=== PATIENT | female | born 1965 | race Caucasian/White ===

== ENCOUNTER 2020-12-17 07:59 | Emergency (ER) | payer BC ==
[~2020-12-17] VITALS: Ht 129.5 cm; Wt 59.0 kg
--- NOTE | 2020-12-17 07:59 | NUR ---
PT BIB SELF C/O BACK AND NECK PAIN FOR 1 WEEK, DENIES INJURY/TRAUMA. PT IS AAOX4, NOT IN RESPIRATORY DISTRESS, V/S STABLE, KEPT RESTED AND COMFORTABLE. WILL CONTINUE TO MONITOR.
--- NOTE | 2020-12-17 08:40 | NUR ---
AT BEDSIDE FOR EVAL.
--- NOTE | 2020-12-17 08:51 | NUR ---
ER PHLEB AT BEDSIDE FOR BLOOD DRAW.
[2020-12-17] MEDS ORDERED: KETOROLAC TROMETHAMINE 15 MG/ML VIAL ONE (08:52)
[2020-12-17] MEDS ORDERED: CYCLOBENZAPRINE 10 MG TABLET ONE (08:52)
[2020-12-17] MEDS ORDERED: KETOROLAC TROMETHAMINE INJ 60 MG/2 ML VIAL IM ONE (09:00)
[2020-12-17] MEDS ORDERED: CYCLOBENZAPRINE 10 MG TABLET PO ONE (09:00)
--- NOTE | 2020-12-17 09:01 | NUR ---
PT WHEELED TO CT SCAN VIA [employer].
[2020-12-17 09:07] LABS: BASOPHILS # (AUTO) 0.1 /CMM (0.0-0.2); EOSINOPHILS % (AUTO) 1.9 % (0.0-6.0); HEMATOCRIT 35 % (33-45); HEMOGLOBIN 11.6 g/dL (11.5-14.8); LYMPHOCYTES # (AUTO) 1.5 /CMM (0.8-4.8); LYMPHOCYTES % (AUTO) 26.3 % (20.0-44.0); MEAN CORPUSCULAR HGB CONC 34 g/dl (31.0-36.0); MEAN CORPUSCULAR VOLUME 89 fL (82-100); MONOCYTES # (AUTO) 0.2 /CMM (0.1-1.30); MONOCYTES % (AUTO) 3.7 % (2.0-12.0); NEUTROPHILS # (AUTO) 3.9 /CMM (1.8-8.9); NEUTROPHILS % (AUTO) 67.1 % (43.0-81.0); PLATELET COUNT (AUTO) 313 /CMM (150-450); WHITE BLOOD COUNT (AUTO) 5.8 K/uL (4.3-11.0)
[2020-12-17 09:12] LABS: CALCIUM, SERUM 10.3 mg/dL (8.5-10.1); CREATININE 0.5 mg/dL (0.6-1.3); POTASSIUM 3.9 mmol/L (3.5-5.1)
[2020-12-17 09:26] LABS: THYROID STIMULATING HORMONE 0.639 uIU/mL (0.358-3.74)
[2020-12-17] MEDS ORDERED: CYCL5TAB PO (10:11)
[2020-12-17 10:22] VITALS: BP 120/66
--- NOTE | 2020-12-17 10:22 | NUR ---
Patient discharged to home in stable condition. Written and verbal after care instructions given. Patient verbalizes understanding of instruction.
== END 2020-12-17 10:23 | disposition home or self-care (01) ==
LOC: ER 08:08
DX: M62.830 Muscle spasm of back (principal); M48.02 Spinal stenosis, cervical region; F41.9 Anxiety disorder, unspecified; Z88.0 Allergy status to penicillin
CPT/HCPCS: 36415; 70450; 72125; 80048; 83735; 84439; 84443; 85025; 96372; 99285; J1885

== ENCOUNTER 2021-02-28 07:13 | Emergency (ER) | payer BC ==
[~2021-02-28] VITALS: Ht 149.9 cm; Wt 59.9 kg
[~2021-02-28 07:13] MED LIST: CYCL5TAB PO
--- NOTE | 2021-02-28 07:26 | NUR ---
PT BIBS FOR C/O ON AND OFF SHAKING, CHILLS, NAUSEA, PALPITATIONS AND DRY MOUTH FOR THE PAST 10 DAYS. PT ALERT AND ORIENTED X3. AMBULATORY AND -SOB.
--- NOTE | 2021-02-28 07:30 | NUR ---
EMT @ BEDSIDE FOR EKG.
--- NOTE | 2021-02-28 07:36 | NUR ---
DR BUSTAMANTE AT BEDSIDE FOR EVAL.
--- NOTE | 2021-02-28 07:54 | NUR ---
Amado esqueda in [facility] - 02/28/21 at 0755 by AKOSUA Radiology at bedside.
--- NOTE | 2021-02-28 07:54 | NUR ---
Radiology at bedside
[2021-02-28 08:03] LABS: BASOPHILS # (AUTO) 0.1 K/uL (0.0-0.2); BASOPHILS % (AUTO) 1.4 % (0.0-2.0); EOSINOPHILS % (AUTO) 2.7 % (0.0-6.0); HEMATOCRIT 36 % (33-45); HEMOGLOBIN 12.2 g/dL (11.5-14.8); LYMPHOCYTES # (AUTO) 1.5 K/uL (0.8-4.8); LYMPHOCYTES % (AUTO) 33.4 % (20.0-44.0); MEAN CORPUSCULAR HGB CONC 34 g/dl (31.0-36.0); MEAN CORPUSCULAR VOLUME 88 fL (82-100); MONOCYTES # (AUTO) 0.2 K/uL (0.1-1.30); MONOCYTES % (AUTO) 3.4 % (2.0-12.0); NEUTROPHILS # (AUTO) 2.7 K/uL (1.8-8.9); NEUTROPHILS % (AUTO) 59.1 % (43.0-81.0); PLATELET COUNT (AUTO) 304 K/uL (150-450); RED BLOOD CELL COUNT(AUTO) 4.06 MIL/uL (4.0-5.2); WHITE BLOOD COUNT (AUTO) 4.6 K/uL (4.3-11.0)
[2021-02-28 08:05] LABS: CALCIUM, SERUM 9.9 mg/dL (8.5-10.1); CARBON DIOXIDE 26 mmol/L (21-32); CHLORIDE 109 mmol/L (98-107); CREATININE 0.5 mg/dL (0.6-1.3); GLUCOSE 98 mg/dL (74-106); POTASSIUM 3.7 mmol/L (3.5-5.1); SODIUM SERUM 144 mmol/L (136-145); UREA NITROGEN, BLOOD 14 mg/dL (7-18)
--- NOTE | 2021-02-28 08:20 | NUR ---
covid swab done and sent to lab
[2021-02-28] MEDS ORDERED: LORA-259 PO (08:54)
[2021-02-28] MEDS ORDERED: PROPRANOLOL HCL 10 MG TABLET PO SCH (09:00)
--- NOTE | 2021-02-28 09:04 | NUR ---
Patient discharged to home in stable condition. Written and verbal after care instructions given. Patient verbalizes understanding of instruction.
[2021-02-28 09:05] VITALS: BP 112/74
== END 2021-02-28 09:06 | disposition home or self-care (01) ==
LOC: ER 07:16
DX: R00.2 Palpitations (principal); F41.9 Anxiety disorder, unspecified; R11.0 Nausea; Z20.822 Contact with and (suspected) exposure to COVID-19
CPT/HCPCS: 36415; 71045; 80048; 84484; 85025; 87426; 93005; 99285; C9803

== ENCOUNTER 2022-02-13 15:45 | Emergency (ER) | payer BC ==
[~2022-02-13] VITALS: Ht 162.6 cm; Wt 68.0 kg
[~2022-02-13 15:45] MED LIST changes: +LORA-259 PO
--- NOTE | 2022-02-13 16:00 | NUR ---
Direct pressure applied. HOB 90 degree angle
[2022-02-13] MEDS ORDERED: OXYMETAZOLINE HCL NASAL SPRAY 30 ML BOTTLE NS ONE ×2 (16:05→16:30)
[2022-02-13] MEDS ORDERED: TRANEXAMIC ACID 1,000 MG/10 ML VIAL ONE (16:22)
[2022-02-13] MEDS ORDERED: TRANEXAMIC ACID 1,000 MG/10 ML VIAL NS ONE (16:30)
--- NOTE | 2022-02-13 16:30 | NUR ---
Adrin Applied to affected nare. Nose clip on. Family at bedside both aware of plan of care
--- NOTE | 2022-02-13 18:07 | NUR ---
Dr Anguiano at bedside to apply Rapid Rhino on affected nare
[2022-02-13] MEDS ORDERED: FENO54TA PO (18:41)
--- NOTE | 2022-02-13 18:48 | NUR ---
MOVE SHEET SUBMITTED.
--- NOTE | 2022-02-13 18:50 | NUR ---
COVID SWAB DONE AND SENT TO LAB
[2022-02-13] MEDS ORDERED: ACETAMINOPHEN ES 500 MG TABLET ONE (18:56)
[2022-02-13] MEDS ORDERED: ACETAMINOPHEN ES 500 MG TABLET PO ONE (19:00)
--- NOTE | 2022-02-13 19:16 | NUR ---
[facility] CALLED TOOL AND FIXTURE REPAIRER PAGED.
--- NOTE | 2022-02-13 19:37 | NUR ---
DR. CHRISTINA ON PHONE CALL WITH DR. CALDWELL REGARDING ADMISSION
--- NOTE | 2022-02-13 19:45 | NUR ---
RAC #[id number] S/L; BLOOD COLLECTED AND SENT TO LAB
[2022-02-13] MEDS ORDERED: HYDROCODONE/APAP 5/325MG TABLET ONE (19:48)
[2022-02-13] MEDS ORDERED: ONDANSETRON HCL/PF 4 MG/2 ML VIAL ONE (19:57)
[2022-02-13] MEDS ORDERED: HYDROCODONE/APAP 5/325MG TABLET PO ONE (20:00)
--- NOTE | 2022-02-13 20:04 | NUR ---
BP 64/[address] CHRISTINA FOR IVF NS 1000ML & ZOFRAN 4MG IVP Addendum: 02/13/22 at 2006 by JIRAQUEL BP 64/[address] CHRISTINA FOR IVF NS 1000ML & ZOFRAN 4MG IVP. ORDERS CARRIED OUT AND ADMINISTERED. WILL REASSESS PT & BP
[2022-02-13 20:10] LABS: BASOPHILS # (AUTO) 0.1 K/uL (0.0-0.2); BASOPHILS % (AUTO) 0.6 % (0.0-2.0); EOSINOPHILS % (AUTO) 1.3 % (0.0-6.0); HEMATOCRIT 32 % (33-45); HEMOGLOBIN 10.7 g/dL (11.5-14.8); LYMPHOCYTES # (AUTO) 2.1 K/uL (0.8-4.8); LYMPHOCYTES % (AUTO) 22.1 % (20.0-44.0); MEAN CORPUSCULAR HGB CONC 34 g/dl (31.0-36.0); MEAN CORPUSCULAR VOLUME 87 fL (82-100); MONOCYTES # (AUTO) 0.3 K/uL (0.1-1.30); NEUTROPHILS # (AUTO) 7.1 K/uL (1.8-8.9); PLATELET COUNT (AUTO) 330 K/uL (150-450); RED BLOOD CELL COUNT(AUTO) 3.68 MIL/uL (4.0-5.2); WHITE BLOOD COUNT (AUTO) 9.7 K/uL (4.3-11.0)
[2022-02-13 20:22] LABS: CALCIUM, SERUM 9.7 mg/dL (8.5-10.1); CREATININE 0.9 mg/dL (0.6-1.3); POTASSIUM 3.8 mmol/L (3.5-5.1)
[2022-02-13] MEDS ORDERED: IV NS 0.9% 1,000 ML IV ONE (20:30)
[2022-02-13] MEDS ORDERED: ONDANSETRON HCL/PF - ER 4 MG/2 ML VIAL IV ONE (20:30)
--- NOTE | 2022-02-13 21:12 | NUR ---
pt discahrgeg in stable contdition left ambualtion. pt will call pcp for apt and reomoval of nose packing. pt declined to return to [facility] for removal
[2022-02-13 21:13] VITALS: BP 118/73
== END 2022-02-13 21:12 | disposition home or self-care (01) ==
LOC: ER 15:47
DX: R04.0 Epistaxis (principal); Z88.0 Allergy status to penicillin; Z20.822 Contact with and (suspected) exposure to COVID-19; T88.7XXA Unspecified adverse effect of drug or medicament, initial encounter; T40.2X5A Adverse effect of other opioids, initial encounter; Y92.238 Other place in hospital as the place of occurrence of the external cause; F41.9 Anxiety disorder, unspecified; Z79.899 Other long term (current) drug therapy
CPT/HCPCS: 99285; 96374; 96361; 87426; 30901; 85025; 80048; 36415; 85730; J2405 ×2; J7030; C9803